=== PATIENT | female | born 1995 | race Caucasian/White ===

== ENCOUNTER 2021-06-19 08:53 | Outpatient (REF) | payer OTHER, SELFPAY ==
[2021-06-19 11:17] LABS: MANUAL DIFF FLAG NO
[2021-06-19 11:20] LABS: Basophils Absolute Auto 0.1 X10*3/uL (0.0-0.2); Basophils Percent Auto 1.5 % (0-2); Eosinophils Absolute Auto 0.1 X10*3/uL (0.0-0.4); Eosinophils Percent Auto 1.4 % (0-4); Hematocrit 36.4 % (37.0-47.0); Hemoglobin 11.7 g/dl (12.0-16.0); Imm Gran Abs Auto 0.01 X10*3/uL (0.00-0.03); Imm Gran Pct Auto 0.1 % (0.0-0.4); Lymphocytes Absolute Auto 2.5 X10*3/uL (1.2-4.9); Mean Corpuscular HGB Conc 32.1 g/dl (31.0-35.0); Mean Corpuscular Hemoglobin 28.3 pg (27.0-33.0); Mean Corpuscular Volume 88.1 fL (80.0-98.0); Mean Platelet Volume 10.3 fL (9.4-12.3); Monocytes Absolute Auto 0.4 X10*3/uL (0.1-1.2); Monocytes Percent Auto 5.2 % (2-11); Neutrophils Absolute Auto 4.2 x10*3/uL (2.0-8.3); Neutrophils Percent Auto 57.8 % (45-73); Platelet Count 334 X10*3/uL (160-400); Red Blood Count 4.13 X10*6/uL (4.20-5.50); Red Cell Distribution Width 12.8 % (11.0-16.0); White Blood Count 7.3 X10*3/uL (4.8-10.8)
[2021-06-19 11:52] LABS: Alanine Aminotransferase 9 U/L (0-31); Anion Gap 12 (12-20); Aspartate Amino Transferase 12 U/L (5-31); Blood Urea Nitrogen 14 mg/dL (9-16); Carbon Dioxide 27 mmol/L (22-29); Chloride 103 mmol/L (96-108); Cholesterol 187 mg/dL; Estimated Glomerular Filt Rate > 60; Glucose Fasting 98 mg/dL (60-99); HDL Cholesterol 75 mg/dL; LDL Cholesterol Calculated 94 mg/dl; Potassium 4.2 mmol/L (3.3-5.1); Sodium 138 mmol/L (135-145); Triglycerides 94 mg/dL
[2021-06-19 12:15] LABS: Vitamin D 25-OH Total 11.8 ng/mL (>30)
== END 2021-06-19 08:54 | disposition home or self-care (01) ==
LOC: HO.HMGCLDS 08:53
PROVIDERS: PCP Internal Medicine; Visit Provider Internal Medicine
DX: Z00.01 Encounter for general adult medical examination with abnormal findings (principal); E66.9 Obesity, unspecified
CPT/HCPCS: 36415; 80048; 80061; 82306; 84450; 84460; 85025

== ENCOUNTER 2021-10-31 12:42 | Outpatient (REF) | payer OTHER, SELFPAY ==
[2021-10-31 13:49] LABS: Appearance Urine CLOUDY; Color Urine ORANGE; Leukocyte Esterase Urine 2+ (NEG); Nitrite Urine POS (NEG); Specific Gravity - Urine 1.025 (1.005-1.025); UACC Culture Trigger YES; Urine Blood TRACE (NEG); Urine Ketones 5 MG/DL (NEG)
[2021-10-31 14:06] LABS: Bacteria Urine 1+ /LPF; RBC Urine 0-2 /HPF (0); Squamous Epithelial Cell Urine 2+ /LPF; WBC Urine 30-49 /HPF (0-4)
== END 2021-10-31 12:43 | disposition home or self-care (01) ==
LOC: HO.LAB 12:42
PROVIDERS: Visit Provider Internal Medicine
DX: R30.0 Dysuria (principal)
CPT/HCPCS: 81001; 81003; 87086; 87088; 87186

== ENCOUNTER 2023-05-07 10:09 | Outpatient (AMB) | payer OTHER, SELFPAY ==
--- NOTE | 2023-05-07 11:23 | AM.OFFWIN_ITS ---
Intake Vital Signs 05/07/23 11:30 Height 5 ft 4 in Weight 187 lb BMI 32.1 BP 110/70 Blood Pressure Location Rt brachial Position Sitting Pulse 87 Pulse Source Pulse Oximeter Pulse Oximetry (%) 99 Oxygen Delivery Method Room Air Intake Visit Reasons: EP, congestion, cough ([phone]) Intake Note: pt is here today for congestion,cough started a week and a half ago Patient Tobacco Use Status: Never used Tobacco Patient : Yes Allergies No Known Allergies Allergy (Verified 05/07/23 11:23) Do you need a note to return to daycare/school/sports/work: Yes HPI HPI Comments History of Present Illness Details Patient is a 27-year-old female in today for a sick visit. She states that for the past week and half she is experience fatigue, cough, congestion, sore throat. She is an employee here [facility] [employer] and states she has been around various sick people throughout her work shift. She states she is also in her 1st trimester. Denies shortness of breath, chest pain, vomiting, diarrhea, dizziness. She states she has not tried any medication he does not want to because of her . Will obtain in office upper respiratory swab. [facility] Medical History (Updated 05/07/23 @ 12:20 by JUDY Matthews) Dermatophytosis of scalp LGSIL on Pap smear of cervix Breast asymmetry Obesity (BMI 30.0-34.9) Umbilical hernia Asthma Surgical History (Updated 07/28/21 @ 12:22 by Amanda Sauceda MD) History of incisional hernia repair S/P herniorrhaphy Family History (System 06/19/21 @ 12:30 by Marija Corbin) Other No significant family history Social History (System 06/19/21 @ 12:30 by Marija Corbin) Housing: Apartment Patient Tobacco Use Status: Never used Tobacco e-Cigarette/Vaping Use: Never Used Second Hand Smoke Exposure: No Patient : Yes service: No Current occupational status: employed Review of Systems Const Details: Constitutional : No Weight loss, No Fever, No Chills, Admits Fatigue, No Malaise ENT/Mouth : Admits sore throat, No Rhinorrhea Eyes: No Eye Pain, No Swelling, No Redness Cardiovascular : No Chest Pain, No SOB, No Dyspnea on Exertion, No Orthopnea, No Edema, No Palpitations Respiratory : Admits Cough, No Sputum, No Wheezing Gastrointestinal : No Nausea, No Vomiting, No Diarrhea, No Constipation, No abdominal Pain, No Hematochezia, No Melena Psych : No Anxiety/Panic, No Depression Heme/Lymph: No Bruising, No Bleeding,No Lymphadenopathy Endocrine : No Polyuria, No Polydipsia All other systems reviewed and are negative Physical Exam Vital Signs: Last Vital Signs Pulse 87 05/07/23 11:30 BP 110/70 05/07/23 11:30 Pulse Ox 99 05/07/23 11:30 Oxygen Delivery Method Room Air 05/07/23 11:30 BMI result Body Mass Index 32.1 Vital signs reviewed and are stable Const Other: Appearance: Alert.? Oriented X3.? No acute distress.? Head: Normocephalic. Eyes: Pupils equal, round and reactive to light.? ENT: Pharynx normal.? Neck: Normal inspection.? Neck supple.? CVS: Normal heart rate and rhythm.? Pulses normal.? Respiratory: No respiratory distress.? Breath sounds normal.? Neuro: Oriented X 3.? No motor deficit.? No sensory deficit. CN 2-12 intact Results AMB Rapid Strep AMB Rapid Strep Negative Last Edit by Danny Lundberg CMA on 05/07/23 11 :45 Results Reviewed Results Reviewed: Laboratory Last Values Strep Scn [facility] Negative 05/07/23 11:44 Strep negative. Will call patient with upper respiratory swab results. Assessment & Plan Assessment & Plan (1) Upper respiratory infection: Comment: Patient works at hospital around many sick individuals and likely has upper respiratory infection. She has no chest pain shortness a breath. She should use supportive interventions for symptom relief. She can try drinking tea for her throat, and utilizing improved [id number]-gab-feyrfii medicine. Patient has appointment later today with OBGYN. Patient is agreeable to this plan. Code(s): J06.9 - Acute upper respiratory infection, unspecified Qualifiers: URI type: unspecified URI Qualified Code(s): J06.9 - Acute upper respiratory infection, unspecified Plan: Patient will use supportive measures for symptom relief. Plan Patient will use supportive measures for symptom relief. She has been educated on signs of worsening symptoms and when to return to the walk-in or when to present to the emergency room. Patient is agreeable to this plan. Orders: Orders AMB Rapid Strep Screen Today Z13.9 - Encounter for screening, unspecified NEMO Hernandez SARS-CoV2/FLU/RSV Today J06.9 - Acute upper respiratory infection, unspecified JUDY Mathtews Coding Level of Care Code Est Pt Level 3 (74147) Diagnoses Upper respiratory tract infection, unspecified type J06.9 URI type: unspecified URI Time Spent (min) 15
[2023-05-07 11:30] VITALS: BP 110/70; PULSE 87; O2SAT 99; BMI 32.1
== END 2023-05-07 12:30 | disposition home or self-care (01) ==
PROVIDERS: PCP Internal Medicine; Visit Provider Nurse Practitioner Primary Care
DX: J02.9 Acute pharyngitis, unspecified (principal); J06.9 Acute upper respiratory infection, unspecified
CPT/HCPCS: 87880; 99213

== ENCOUNTER 2023-05-07 14:05 | Outpatient (REF) | payer OTHER, SELFPAY ==
[2023-05-07 15:28] LABS: Influenza A PCR NEGATIVE (Negative); Influenza B PCR NEGATIVE (Negative); Resp Syncy Virus RNA Qual PCR POSITIVE (Negative); SARS COV2 PCR INHOUSE NEGATIVE (Negative)
== END 2023-05-07 14:06 | disposition home or self-care (01) ==
LOC: HO.LNP 14:05
PROVIDERS: Visit Provider Nurse Practitioner Primary Care
DX: Z11.52 Encounter for screening for COVID-19 (principal); J06.9 Acute upper respiratory infection, unspecified
CPT/HCPCS: 0241U